=== PATIENT | female | born 1985 | race Caucasian/White ===

== ENCOUNTER → 2021-03-31 15:29 | Outpatient (CLI) | payer OTHER, SELFPAY ==
--- NOTE | 2021-03-31 15:32 | DI.MRI.S_ITS ---
PROCEDURE: MR KNEE RT WO CON INDICATIONS: Chondromalacia patellae, unspecified knee TECHNIQUE: Noncontrast sagittal PD fast spin echo and T2 fast spin echo with fat saturation, sagittal 3-D FLASH with fat saturation; coronal T1 spin echo and PD fast spin echo with fat saturation, and axial PD fast spin echo with fat saturation through the knee. COMPARISON: None. FINDINGS: Menisci: Medial meniscus: Intact. Lateral meniscus: Intact. Cruciate ligaments: Anterior cruciate ligament: Intact. Posterior cruciate ligament: Intact. Medial structures: The medial collateral ligament: Intact. Semimembranosus tendon: Intact. Visualized pes anserinus tendons: Intact. Bursal fluid: none. Lateral structures: The lateral collateral ligament intact. Biceps femoris tendon appears intact. Popliteus tendon grossly unremarkable. Iliotibial band appears intact. Anterior structures: Mild distal quadriceps insertional tendinopathy. Lateral patellofemoral ligament appears intact. There appears to be postsurgical changes of the medial patellofemoral ligament. There is associated thickening of the MPFL which is probably chronic/degenerative and or postoperative sequela. Borderline patella shilpi. Mild patellar tendinopathy. Hoffa's fat pad unremarkable. Bones and cartilage: Marrow: No focal marrow contusion or discrete low signal fracture line. Medial compartment: No focal chondral defect. Lateral compartment: No focal chondral defect. Patellofemoral compartment: Full-thickness fissuring of the cartilage overlying the lateral patellar facet and there is also surface fraying. Diffuse partial-thickness loss of the femoral trochlear cartilage. Joint space: Trace joint effusion. Trace fluid between the semimembranosus and medial gastrocnemius tendons without definite formed cyst. No specific evidence of intra-articular loose body. IMPRESSION: Postsurgical changes of the medial patellofemoral ligament. This appears intact without rupture. Thickening and intrasubstance signal changes of the MPFL likely reflect chronic degeneration and or postoperative sequela. Mild patellar and distal quadriceps tendinopathy Patellofemoral chondromalacia with full-thickness fissuring of the cartilage overlying the lateral patellar facet Trace joint effusion Dictated by: Juan Daniel Bates M.D. on 03/31/2021 at 16:31 Approved by: Juan Daniel Bates M.D. on 03/31/2021 at 16:45
== END ==
PROVIDERS: Referring Provider Orthopaedic Surgery; Visit Provider Orthopaedic Surgery
DX: M22.41 Chondromalacia patellae, right knee (principal); M25.361 Other instability, right knee
CPT/HCPCS: 73721